=== PATIENT | male | born 1975 | race Two or more races ===

== ENCOUNTER 2017-05-04 12:36 | Emergency (ER) | payer OTHER ==
[2017-05-04] MEDS ORDERED: Ketorolac 60 MG/2 ML SDV IM ONE (12:54)
--- NOTE | 2017-05-04 13:18 | EDM.PDOC ---
ED HPI GENERAL MEDICAL PROBLEM - General Chief Complaint: Back Pain or Injury Stated Complaint: BACK PAIN Time Seen by Provider: 05/04/17 12:45 Source of Information: Reports: Patient History Limitations: Reports: No Limitations - History of Present Illness INITIAL COMMENTS - FREE TEXT/NARRATIVE: History of present illness: 41-year-old male comes in complaining of right-sided lower back pain but indicates he also has radiating pain down his left leg with some amount of numbness and tingling. Review of systems: As per history of present illness and below otherwise all systems reviewed and negative. Past medical history: As per history of present illness and as reviewed below otherwise noncontributory. Surgical history: As per history of present illness and as reviewed below otherwise noncontributory. Social history: No reported history of drug or alcohol abuse. Family history: As per history of present illness and as reviewed below otherwise noncontributory. Physical exam: HEENT: Atraumatic, normocephalic, pupils reactive, negative for conjunctival pallor or scleral icterus, mucous membranes moist, throat clear, neck supple, nontender, trachea midline. Lungs: Clear to auscultation, breath sounds equal bilaterally, chest nontender. Heart: S1S2, regular, negative for clicks, rubs, or JVD. Abdomen: Soft, nondistended, nontender. Negative for masses or hepatosplenomegaly. Negative for costovertebral tenderness. Pelvis: Stable nontender. Genitourinary: Deferred. Rectal: Deferred. Extremities: Atraumatic, negative for cords or calf pain. Neurovascular unremarkable. Neuro: Awake, alert, oriented. Cranial nerves II through XII unremarkable. Cerebellum unremarkable. Motor and sensory unremarkable throughout. Exam nonfocal. Global assessment is benign without any measurable point tenderness or guarding or altered gait. Diagnostics: [X-ray of lumbar spine] Therapeutics: [Toradol] Impression: [Pain] Plan: [Norflex, meloxicam, follow-up with PCP] Definitive disposition and diagnosis as appropriate pending reevaluation and review of above. Back Pain Pain Score (Numeric/FACES): 7 - Related Data Allergies Allergy/AdvReac Type Severity Reaction Status Date / Time No Known Allergies Allergy Verified 05/04/17 12:47 Home Meds: Home Meds Meloxicam 7.5 mg PO BID #30 tablet 05/04/17 [Rx] Orphenadrine [Norflex] 100 mg PO BID #28 tab.er 05/04/17 [Rx] Past Medical History - Past Health History Medical/Surgical History: Denies Medical/Surgical History Social & Family History - Family History Family Medical History: Noncontributory - Tobacco Use Smoking Status *Q: Never Smoker Second Hand Smoke Exposure: No - Caffeine Use Caffeine Use: Reports: None - Recreational Drug Use Recreational Drug Use: No ED ROS GENERAL - Review of Systems Review Of Systems: See Below (See history of present illness) ED EXAM,LOWER BACK PAIN/INJURY - Physical Exam Exam: See Below (History of present illness) Course - Vital Signs Last Recorded V/S: Last Vital Signs Temp 36.2 C 05/04/17 12:47 Pulse 77 05/04/17 12:47 Resp 16 05/04/17 12:47 BP 135/69 05/04/17 12:47 Pulse Ox 97 05/04/17 12:47 - Orders/Labs/Meds Orders: Active Orders 24 hr Category Date Time Status Lumbar Spine 2 or 3V [CR] Stat Exams 05/04/17 12:54 Taken Meds: Medications Discontinued Medications Generic Name Dose Route Start Last Admin Trade Name Freq PRN Reason Stop Dose Admin Ketorolac Tromethamine 60 mg 05/04/17 12:54 05/04/17 13:10 Toradol IM 05/04/17 12:55 60 mg ONETIME ONE Administration Departure - Departure Time of Disposition: 14:11 Disposition: Home, Self-Care 01 Condition: Good Clinical Impression: Back pain with left-sided radiculopathy - Discharge Information Instructions: Back Pain, Adult, Gato-ns-Ccar, Muscle Strain, [id number] Forms: ED Department Discharge Additional Instructions: The following information is given to patients seen in the emergency department who are being discharged to home. This information is to outline your options for follow-up care. We provide all patients seen in our emergency department with a follow-up referral. The need for follow-up, as well as the timing and circumstances, are variable depending upon the specifics of your emergency department visit. If you don't have a primary care physician on staff, we will provide you with a referral. We always advise you to contact your personal physician following an emergency department visit to inform them of the circumstance of the visit and for follow-up with them and/or the need for any referrals to a consulting specialist. The emergency department will also refer you to a specialist when appropriate. This referral assures that you have the opportunity for follow-up care with a specialist. All of these measure are taken in an effort to provide you with optimal care, which includes your follow-up. Under all circumstances we always encourage you to contact your private physician who remains a resource for coordinating your care. When calling for follow-up care, please make the office aware that this follow-up is from your recent emergency room visit. If for any reason you are refused follow-up, please contact the [facility] Emergency Department at and asked to speak to the emergency department charge nurse. Take medication as directed Gentle stretching and alternating ice and heat no longer than 20 minutes at a time It is important follow-up with primary care in 2-3 days Return to ED as needed as discussed - My Orders Last 24 Hours: My Active Orders 05/04/17 12:54 Lumbar Spine 2 or 3V [CR] Stat - Assessment/Plan Last 24 Hours: My Active Orders 05/04/17 12:54 Lumbar Spine 2 or 3V [CR] Stat
[2017-05-04 14:32] VITALS: BP 123/71
--- NOTE | 2017-05-06 14:55 | CR ---
EXAM DATE: 05/04/17 PATIENT'S AGE: 41 Patient: JAREK ALDANA Facility: [place], [place] Site . Site : [id number] Study: XRay Spine Lumbar [id number] 1:32:15 PM Ordering Physician: Doctor Pérez Final Report: INDICATION: pain INDICATION: Low back pain. TECHNIQUE: Lumbar spine 3 view. COMPARISON: None FINDINGS: Bones: Alignment is normal. No fractures or significant bone lesions. Joints: Disc spaces and facets are unremarkable. Soft tissues: Unremarkable. IMPRESSION: No acute bone abnormality. Vertebral body heights/alignment are preserved. Dictated by Jono Field MD @ 05/04/2017 2:02:46 PM Dictated by: Jono Field MD @ 05/04/2017 14:02:55 (Electronic Signature) Report Signed by Proxy. MTD
== END 2017-05-04 14:26 | disposition home or self-care (01) ==
LOC: MW.ED 12:36
DX: M54.16 Radiculopathy, lumbar region (principal)
CPT/HCPCS: 72100; 96372; 99283; J1885; 99282